=== PATIENT | female | born 1955 | race Two or more races ===

== ENCOUNTER 2022-04-03 19:20 | Observation (INO) | payer MEDICARE, OTHER ==
[2022-04-03 21:12] LABS: BASO % 0.9 % (0-2.0); HEMATOCRIT 27.2 % (32.4-45.2); HEMOGLOBIN 8.8 GM/dL (10.7-15.3); LYMPH % 30.9 % (8-40); MCH 33.2 pg (25.7-33.7); MCHC 32.4 g/dl (32.0-36.0); MEAN CELL VOLUME 102.6 fl (80-96); MEAN PLT VOLUME 9.6 fl (7.5-11.1); MONO % 8.4 % (3.8-10.2); NEUT % 51.8 % (42.8-82.8); PLATELET COUNT 132 10^3/uL (134-434); RBC 2.65 M/mm3 (3.60-5.2); RDW 15.8 % (11.6-15.6); WHITE BLOOD COUNT 3.4 K/mm3 (4.0-10.0)
[2022-04-03 21:19] LABS: INR 1.08 (0.83-1.09); PROTHROMBIN TIME (PATIENT) 12.4 SEC (9.7-13.0)
[2022-04-03 21:22] LABS: ACTIVATED PTT 33.1 SECONDS (25.2-36.5)
[2022-04-03 21:38] LABS: EPI CELLS 15 /uL (0-25.1); HYALINE CASTS 1 /uL (0-3.1); URINE APPEARANCE CLEAR; URINE BACTERIA 47 /uL (0-1359); URINE BILIRUBIN NEGATIVE (NEGATIVE); URINE COLOR YELLOW; URINE GLUCOSE (UA) NEGATIVE (NEGATIVE); URINE KETONE NEGATIVE (NEGATIVE); URINE LEUK ESTERASE 1+ (NEGATIVE); URINE NITRITE NEGATIVE (NEGATIVE); URINE PROTEIN TRACE (NEGATIVE); URINE RBC 5 /uL (0-23.9); URINE UROBILINOGEN 0.2 mg/dL (0.2-1.0); URINE WBC 63 /uL (0-25.8)
[2022-04-03 21:43] LABS: BLOOD UREA NITROGEN 25.1 mg/dL (7-18)
[2022-04-03 21:46] LABS: CREATININE 1.3 mg/dL (0.55-1.3)
[2022-04-03 21:47] LABS: BILIRUBIN,TOTAL 0.3 mg/dL (0.2-1); TOT PROT 6.8 g/dl (6.4-8.2)
[2022-04-03 21:50] LABS: N-TERMINAL BNP 1100.1 pg/ml (5-125)
[2022-04-04 11:06] VITALS: BMI 25.9
[2022-04-04] MEDS: levETIRAcetam 500 MG TABLET (FP) PO SCH (11:44)
[2022-04-04] MEDS: METOPROLOL TARTRATE 25 MG TABLET (FP) PO SCH (11:44)
[2022-04-04] MEDS: SACUBITRIL/VALSARTAN 24 MG-26 MG TABLET PO SCH ×2 (11:45→21:56)
[2022-04-04] MEDS: ESCITALOPRAM OXALATE 10 MG TABLET PO SCH (11:45)
[2022-04-04] MEDS: DIVALPROEX SODIUM 500 MG TABLET E.C. PO SCH (11:45)
[2022-04-04 13:02] LABS: BASO % 0.8 % (0-2.0); EOS % 9.1 % (0-4.5); HEMATOCRIT 30.3 % (32.4-45.2); HEMOGLOBIN 9.6 GM/dL (10.7-15.3); LYMPH % 21.8 % (8-40); MCH 32.6 pg (25.7-33.7); MCHC 31.6 g/dl (32.0-36.0); MEAN CELL VOLUME 103.1 fl (80-96); MEAN PLT VOLUME 9.3 fl (7.5-11.1); MONO % 8.6 % (3.8-10.2); NEUT % 59.7 % (42.8-82.8); PLATELET COUNT 137 10^3/uL (134-434); RBC 2.94 M/mm3 (3.60-5.2)
[2022-04-04 13:18] LABS: ALBUMIN 2.9 g/dl (3.4-5.0); BLOOD UREA NITROGEN 20.9 mg/dL (7-18); CALCIUM 8.6 mg/dL (8.5-10.1)
[2022-04-04 13:23] LABS: BILIRUBIN,TOTAL 0.6 mg/dL (0.2-1); TOT PROT 6.7 g/dl (6.4-8.2)
[2022-04-04] MEDS: QUEtiapine FUMARATE 200 MG TABLET PO SCH (21:56)
[2022-04-04] MEDS: ATORVASTATIN CA 80 MG TABLET (FP) PO SCH (21:56)
[2022-04-05] MEDS ORDERED: RIVAROXABAN 20 MG TABLET PO SCH (10:00)
[2022-04-05] MEDS: DIVALPROEX SODIUM 500 MG TABLET E.C. PO SCH (10:40)
[2022-04-05] MEDS: levETIRAcetam 500 MG TABLET (FP) PO SCH (10:40)
[2022-04-05] MEDS: ESCITALOPRAM OXALATE 10 MG TABLET PO SCH (10:40)
[2022-04-05] MEDS: METOPROLOL TARTRATE 25 MG TABLET (FP) PO SCH (10:41)
[2022-04-05] MEDS: SACUBITRIL/VALSARTAN 24 MG-26 MG TABLET PO SCH ×2 (10:43→22:15)
[2022-04-05] MEDS: POLYETHYLENE GLYCOL (HEALTHYLAX) 3350 17 GM PACKET PO SCH (10:43)
[2022-04-05 12:22] LABS: BASO % 0.8 % (0-2.0); EOS % 9.1 % (0-4.5); HEMATOCRIT 30.2 % (32.4-45.2); HEMOGLOBIN 9.8 GM/dL (10.7-15.3); LYMPH % 25.4 % (8-40); MCH 32.9 pg (25.7-33.7); MCHC 32.4 g/dl (32.0-36.0); MEAN CELL VOLUME 101.5 fl (80-96); MEAN PLT VOLUME 9.2 fl (7.5-11.1); MONO % 7.9 % (3.8-10.2); NEUT % 56.8 % (42.8-82.8); PLATELET COUNT 138 10^3/uL (134-434); RBC 2.97 M/mm3 (3.60-5.2); RDW 15.9 % (11.6-15.6); WHITE BLOOD COUNT 3.2 K/mm3 (4.0-10.0)
[2022-04-05 12:55] LABS: CALCIUM 8.5 mg/dL (8.5-10.1)
[2022-04-05 12:56] LABS: ALBUMIN 2.8 g/dl (3.4-5.0); BLOOD UREA NITROGEN 19.4 mg/dL (7-18)
[2022-04-05 12:59] LABS: CREATININE 1.1 mg/dL (0.55-1.3)
[2022-04-05 13:00] LABS: BILIRUBIN,TOTAL 0.4 mg/dL (0.2-1); TOT PROT 6.4 g/dl (6.4-8.2)
[2022-04-05 13:53] VITALS: RESP 18
[2022-04-05] MEDS: ATORVASTATIN CA 80 MG TABLET (FP) PO SCH (21:45)
[2022-04-05] MEDS: QUEtiapine FUMARATE 200 MG TABLET PO SCH (21:45)
[2022-04-06] MEDS: levETIRAcetam 500 MG TABLET (FP) PO SCH (09:06)
[2022-04-06] MEDS: METOPROLOL TARTRATE 25 MG TABLET (FP) PO SCH (09:06)
[2022-04-06] MEDS: POLYETHYLENE GLYCOL (HEALTHYLAX) 3350 17 GM PACKET PO SCH (09:07)
[2022-04-06] MEDS: DIVALPROEX SODIUM 500 MG TABLET E.C. PO SCH (09:08)
[2022-04-06] MEDS: SACUBITRIL/VALSARTAN 24 MG-26 MG TABLET PO SCH (09:08)
[2022-04-06] MEDS: ESCITALOPRAM OXALATE 10 MG TABLET PO SCH (09:09)
[2022-04-06] MEDS ORDERED: RIVAROXABAN 20 MG TABLET PO SCH (18:00)
[2022-04-06 18:52] VITALS: BP 132/80; PULSE 62; TEMP 97.8
== END 2022-04-06 18:57 ==
LOC: JER 19:20 → JERBED 22:10 → J6S 04-04 09:15
PROVIDERS: ADMIT Internal Medicine; ATTEND Family Medicine
DX: S09.90XA Unspecified injury of head, initial encounter (principal); W18.39XA Other fall on same level, initial encounter; Y93.89 Activity, other specified; Y92.89 Other specified places as the place of occurrence of the external cause; Z88.8 Allergy status to other drugs, medicaments and biological substances; I10 Essential (primary) hypertension; E78.5 Hyperlipidemia, unspecified; R29.2 Abnormal reflex; E11.9 Type 2 diabetes mellitus without complications; I25.10 Atherosclerotic heart disease of native coronary artery without angina pectoris; I11.0 Hypertensive heart disease with heart failure; I50.9 Heart failure, unspecified; Z86.73 Personal history of transient ischemic attack (TIA), and cerebral infarction without residual deficits; J45.909 Unspecified asthma, uncomplicated; Z99.89 Dependence on other enabling machines and devices; I42.8 Other cardiomyopathies; R00.1 Bradycardia, unspecified; I48.91 Unspecified atrial fibrillation; D64.9 Anemia, unspecified; R82.71 Bacteriuria; R56.9 Unspecified convulsions
CPT/HCPCS: 0241U-QW; 36415; 70450-TC; 71045-TC-FY; 72125-TC; 72170-TC-FY; 76705-TC; 80053; 80177; 81003; 82607; 82728; 82746; 83540; 83550; 83615; 83735; 83880; 84443; 84484; 85025; 85610; 85730; 86704; 86803; 86850; 86900; 86901; 87086; 87186; 87340; 87517; 93005; 93010; 97116-GP; 97161-GP; 99285-25; G0378

== ENCOUNTER 2022-04-25 19:07 | Observation (INO) | payer OTHER ==
[2022-04-25 21:54] LABS: BASO % 1.5 % (0-2.0); EOS % 3.5 % (0-4.5); HEMATOCRIT 31.5 % (32.4-45.2); HEMOGLOBIN 10.4 GM/dL (10.7-15.3); LYMPH % 25.5 % (8-40); MCHC 32.9 g/dl (32.0-36.0); MEAN CELL VOLUME 100.2 fl (80-96); MEAN PLT VOLUME 9.1 fl (7.5-11.1); MONO % 7.7 % (3.8-10.2); NEUT % 61.8 % (42.8-82.8); PLATELET COUNT 198 10^3/uL (134-434); RBC 3.15 M/mm3 (3.60-5.2); RDW 14.4 % (11.6-15.6); WHITE BLOOD COUNT 2.8 K/mm3 (4.0-10.0)
[2022-04-25 22:01] LABS: INR 1.04 (0.83-1.09)
[2022-04-25 22:04] LABS: ACTIVATED PTT 30.6 SECONDS (25.2-36.5)
[2022-04-25 22:12] LABS: CALCIUM 8.8 mg/dL (8.5-10.1)
[2022-04-25 22:13] LABS: ALBUMIN 3.1 g/dl (3.4-5.0); BLOOD UREA NITROGEN 30.3 mg/dL (7-18); MAGNESIUM 2.2 mg/dL (1.8-2.4)
[2022-04-25 22:16] LABS: CREATININE 1.3 mg/dL (0.55-1.3)
[2022-04-25 22:17] LABS: BILIRUBIN,TOTAL 0.3 mg/dL (0.2-1); TOT PROT 7.2 g/dl (6.4-8.2)
[2022-04-25] MEDS ORDERED: ACETAMINOPHEN 325 MG TABLET (FP) PO PRN (22:47)
[2022-04-26] MEDS ORDERED: DEXTROSE 50%-WATER - 25 GM/50 ML VIAL IVPUSH ONE (02:30)
[2022-04-26] MEDS ORDERED: DEXTROSE 50%-WATER 25 GM/50 ML DISP.SYRIN ONE (02:31)
[2022-04-26] MEDS ORDERED: guaiFENesin/D-M SUGAR-FREE/ACLHOL-FREE 118 ML BOTTLE PO PRN (06:33)
[2022-04-26 08:51] LABS: BASO % 0.4 % (0-2.0); EOS % 4.7 % (0-4.5); HEMATOCRIT 30.2 % (32.4-45.2); HEMOGLOBIN 10.2 GM/dL (10.7-15.3); LYMPH % 37.9 % (8-40); MCH 33.2 pg (25.7-33.7); MCHC 33.7 g/dl (32.0-36.0); MEAN CELL VOLUME 98.7 fl (80-96); MEAN PLT VOLUME 8.6 fl (7.5-11.1); PLATELET COUNT 177 10^3/uL (134-434); RBC 3.06 M/mm3 (3.60-5.2); RDW 14.4 % (11.6-15.6); WHITE BLOOD COUNT 2.3 K/mm3 (4.0-10.0)
[2022-04-26 09:13] LABS: CALCIUM 8.7 mg/dL (8.5-10.1)
[2022-04-26 09:14] LABS: BLOOD UREA NITROGEN 24.8 mg/dL (7-18); MAGNESIUM 2.1 mg/dL (1.8-2.4)
[2022-04-26 09:17] LABS: CREATININE 1.1 mg/dL (0.55-1.3); PHOSPHOROUS 2.9 mg/dL (2.5-4.9)
[2022-04-26] MEDS: INSULIN SLIDING SCALE (NOVOLOG) 1 VIAL SQ SCH ×4 (09:18→23:05)
[2022-04-26] MEDS ORDERED: ALBUTEROL SO4 HFA INHALER IH PRN (11:07)
[2022-04-26] MEDS ORDERED: POLYETHYLENE GLYCOL (HEALTHYLAX) 3350 17 GM PACKET ONE (11:13)
[2022-04-26] MEDS ORDERED: DIVALPROEX SODIUM 500 MG TABLET E.C. ONE (11:14)
[2022-04-26] MEDS ORDERED: levETIRAcetam 500 MG TABLET (FP) PO ONE (11:14)
[2022-04-26] MEDS ORDERED: ESCITALOPRAM OXALATE 10 MG TABLET ONE (11:14)
[2022-04-26] MEDS: POLYETHYLENE GLYCOL (HEALTHYLAX) 3350 17 GM PACKET PO SCH (11:17)
[2022-04-26] MEDS: DIVALPROEX SODIUM 500 MG TABLET E.C. PO SCH (11:17)
[2022-04-26] MEDS: ESCITALOPRAM OXALATE 20 MG TABLET PO SCH (11:17)
[2022-04-26] MEDS: levETIRAcetam 500 MG TABLET (FP) PO SCH ×2 (11:17→23:22)
[2022-04-26] MEDS ORDERED: FUROSEMIDE 40 MG TABLET (FP) PO ONE (18:39)
[2022-04-26] MEDS ORDERED: FUROSEMIDE 40 MG TABLET (FP) ONE (19:18)
[2022-04-26] MEDS: SACUBITRIL/VALSARTAN 24 MG-26 MG TABLET PO SCH ×2 (23:21→23:22)
[2022-04-26] MEDS: ATORVASTATIN CA 80 MG TABLET (FP) PO SCH (23:23)
[2022-04-27] MEDS: QUEtiapine FUMARATE 200 MG TABLET PO SCH ×2 (00:08→21:38)
[2022-04-27 00:51] VITALS: BMI 27.3
[2022-04-27] MEDS: INSULIN SLIDING SCALE (NOVOLOG) 1 VIAL SQ SCH ×4 (07:01→21:49)
[2022-04-27 09:13] LABS: BASO % 0.6 % (0-2.0); HEMATOCRIT 31.7 % (32.4-45.2); HEMOGLOBIN 10.6 GM/dL (10.7-15.3); LYMPH % 38.5 % (8-40); MCHC 33.5 g/dl (32.0-36.0); MEAN CELL VOLUME 98.4 fl (80-96); MONO % 8.2 % (3.8-10.2); NEUT % 46.7 % (42.8-82.8); PLATELET COUNT 169 10^3/uL (134-434); RBC 3.22 M/mm3 (3.60-5.2); RDW 14.3 % (11.6-15.6); WHITE BLOOD COUNT 2.4 K/mm3 (4.0-10.0)
[2022-04-27 09:23] LABS: ALBUMIN 2.8 g/dl (3.4-5.0); CALCIUM 8.9 mg/dL (8.5-10.1)
[2022-04-27 09:24] LABS: BLOOD UREA NITROGEN 21.5 mg/dL (7-18)
[2022-04-27 09:27] LABS: CREATININE 1.1 mg/dL (0.55-1.3)
[2022-04-27 09:28] LABS: BILIRUBIN,TOTAL 0.2 mg/dL (0.2-1); TOT PROT 6.4 g/dl (6.4-8.2)
[2022-04-27] MEDS ORDERED: ESCITALOPRAM OXALATE 10 MG TABLET ONE ×2 (09:57→09:58)
[2022-04-27] MEDS: DIVALPROEX SODIUM 500 MG TABLET E.C. PO SCH (10:01)
[2022-04-27] MEDS: POLYETHYLENE GLYCOL (HEALTHYLAX) 3350 17 GM PACKET PO SCH (10:01)
[2022-04-27] MEDS: levETIRAcetam 500 MG TABLET (FP) PO SCH ×2 (10:02→21:37)
[2022-04-27] MEDS: ESCITALOPRAM OXALATE 20 MG TABLET PO SCH (10:02)
[2022-04-27] MEDS: SACUBITRIL/VALSARTAN 24 MG-26 MG TABLET PO SCH ×2 (10:02→21:37)
[2022-04-27] MEDS: ATORVASTATIN CA 80 MG TABLET (FP) PO SCH (21:38)
[2022-04-28] MEDS: INSULIN SLIDING SCALE (NOVOLOG) 1 VIAL SQ SCH ×4 (06:03→21:49)
[2022-04-28] MEDS ORDERED: ESCITALOPRAM OXALATE 10 MG TABLET ONE (09:46)
[2022-04-28] MEDS: levETIRAcetam 500 MG TABLET (FP) PO SCH ×2 (10:29→21:41)
[2022-04-28] MEDS: ESCITALOPRAM OXALATE 20 MG TABLET PO SCH (10:29)
[2022-04-28] MEDS: POLYETHYLENE GLYCOL (HEALTHYLAX) 3350 17 GM PACKET PO SCH (10:29)
[2022-04-28] MEDS: SACUBITRIL/VALSARTAN 24 MG-26 MG TABLET PO SCH ×2 (10:30→21:41)
[2022-04-28] MEDS: DIVALPROEX SODIUM 500 MG TABLET E.C. PO SCH (10:30)
[2022-04-28] MEDS: ATORVASTATIN CA 80 MG TABLET (FP) PO SCH (21:41)
[2022-04-28] MEDS: QUEtiapine FUMARATE 200 MG TABLET PO SCH (21:41)
[2022-04-29] MEDS: INSULIN SLIDING SCALE (NOVOLOG) 1 VIAL SQ SCH ×4 (06:29→21:45)
[2022-04-29] MEDS ORDERED: ESCITALOPRAM OXALATE 10 MG TABLET ONE (07:59)
[2022-04-29 08:15] LABS: BASO % 0.6 % (0-2.0); EOS % 4.8 % (0-4.5); HEMATOCRIT 32.8 % (32.4-45.2); LYMPH % 27.3 % (8-40); MCH 33.1 pg (25.7-33.7); MCHC 33.6 g/dl (32.0-36.0); MEAN CELL VOLUME 98.5 fl (80-96); MEAN PLT VOLUME 8.3 fl (7.5-11.1); MONO % 7.4 % (3.8-10.2); NEUT % 59.9 % (42.8-82.8); PLATELET COUNT 152 10^3/uL (134-434); RBC 3.33 M/mm3 (3.60-5.2); WHITE BLOOD COUNT 3.4 K/mm3 (4.0-10.0)
[2022-04-29 08:31] LABS: CALCIUM 8.6 mg/dL (8.5-10.1)
[2022-04-29 08:32] LABS: ALBUMIN 2.6 g/dl (3.4-5.0)
[2022-04-29 08:34] LABS: CREATININE 1.1 mg/dL (0.55-1.3)
[2022-04-29 08:36] LABS: BILIRUBIN,TOTAL 0.5 mg/dL (0.2-1); TOT PROT 6.2 g/dl (6.4-8.2)
[2022-04-29 08:39] LABS: BLOOD UREA NITROGEN 20.9 mg/dL (7-18)
[2022-04-29] MEDS: SACUBITRIL/VALSARTAN 24 MG-26 MG TABLET PO SCH ×2 (09:12→21:44)
[2022-04-29] MEDS: DIVALPROEX SODIUM 500 MG TABLET E.C. PO SCH (09:12)
[2022-04-29] MEDS: ESCITALOPRAM OXALATE 20 MG TABLET PO SCH (09:12)
[2022-04-29] MEDS: POLYETHYLENE GLYCOL (HEALTHYLAX) 3350 17 GM PACKET PO SCH (09:13)
[2022-04-29] MEDS: levETIRAcetam 500 MG TABLET (FP) PO SCH ×2 (09:13→21:44)
[2022-04-29] MEDS ORDERED: RIVAROXABAN 20 MG TABLET PO SCH (18:00)
[2022-04-29] MEDS: ATORVASTATIN CA 80 MG TABLET (FP) PO SCH (21:45)
[2022-04-29] MEDS: QUEtiapine FUMARATE 200 MG TABLET PO SCH (22:48)
[2022-04-30] MEDS ORDERED: DEXTROSE 50%-WATER - 25 GM/50 ML VIAL IVPUSH ONE (06:00)
[2022-04-30] MEDS: INSULIN SLIDING SCALE (NOVOLOG) 1 VIAL SQ SCH ×2 (06:00→12:05)
[2022-04-30] MEDS ORDERED: DEXTROSE 50%-WATER 25 GM/50 ML DISP.SYRIN ONE (06:02)
[2022-04-30] MEDS ORDERED: ESCITALOPRAM OXALATE 10 MG TABLET ONE (08:09)
[2022-04-30 08:10] LABS: BASO % 0.6 % (0-2.0); EOS % 5.9 % (0-4.5); HEMATOCRIT 32.4 % (32.4-45.2); HEMOGLOBIN 10.8 GM/dL (10.7-15.3); LYMPH % 32.6 % (8-40); MCH 32.9 pg (25.7-33.7); MCHC 33.4 g/dl (32.0-36.0); MEAN CELL VOLUME 98.3 fl (80-96); MEAN PLT VOLUME 9.4 fl (7.5-11.1); MONO % 7.5 % (3.8-10.2); NEUT % 53.4 % (42.8-82.8); PLATELET COUNT 148 10^3/uL (134-434); RBC 3.29 M/mm3 (3.60-5.2); WHITE BLOOD COUNT 2.7 K/mm3 (4.0-10.0)
[2022-04-30 08:42] LABS: ALBUMIN 2.6 g/dl (3.4-5.0); BILIRUBIN,TOTAL 0.2 mg/dL (0.2-1); BLOOD UREA NITROGEN 20.1 mg/dL (7-18); CALCIUM 8.8 mg/dL (8.5-10.1); CREATININE 1.1 mg/dL (0.55-1.3); TOT PROT 6.3 g/dl (6.4-8.2)
[2022-04-30] MEDS: DIVALPROEX SODIUM 500 MG TABLET E.C. PO SCH (09:40)
[2022-04-30] MEDS: SACUBITRIL/VALSARTAN 24 MG-26 MG TABLET PO SCH (09:40)
[2022-04-30] MEDS: POLYETHYLENE GLYCOL (HEALTHYLAX) 3350 17 GM PACKET PO SCH (09:40)
[2022-04-30] MEDS: ESCITALOPRAM OXALATE 20 MG TABLET PO SCH (09:40)
[2022-04-30] MEDS: levETIRAcetam 500 MG TABLET (FP) PO SCH (09:40)
[2022-04-30 14:14] VITALS: BP 118/84; PULSE 73; RESP 18; TEMP 98.5
== END 2022-04-30 16:24 ==
LOC: JER 19:07 → JERBED 20:00 → J4S 04-26 22:58
PROVIDERS: ADMIT Internal Medicine; ATTEND Internal Medicine
PROC: 3E033GC Introduction of Other Therapeutic Substance into Peripheral Vein, Percutaneous Approach (ICD-10-PCS; principal; 2022-04-25)
DX: I11.0 Hypertensive heart disease with heart failure (principal); U07.1 COVID-19; I25.10 Atherosclerotic heart disease of native coronary artery without angina pectoris; E78.5 Hyperlipidemia, unspecified; E11.9 Type 2 diabetes mellitus without complications; I50.20 Unspecified systolic (congestive) heart failure; Z86.718 Personal history of other venous thrombosis and embolism; Z79.01 Long term (current) use of anticoagulants; I42.8 Other cardiomyopathies; R01.1 Cardiac murmur, unspecified; M54.9 Dorsalgia, unspecified; W18.39XA Other fall on same level, initial encounter; S09.90XA Unspecified injury of head, initial encounter; Y93.89 Activity, other specified; Y92.89 Other specified places as the place of occurrence of the external cause; Z88.8 Allergy status to other drugs, medicaments and biological substances
CPT/HCPCS: 0241U-QW; 36415; 70450-TC; 71045-TC-FY; 72125-TC; 72170-TC-FY; 80048; 80053; 82728; 82962; 83605; 83615; 83735; 84100; 85025; 85610; 85730; 86140; 86850; 86900; 86901; 93005; 93010; 94761; 96374; 96376; 97116-GP; 97161-GP; 99285-25; G0378

== ENCOUNTER 2022-05-05 22:22 | Observation (INO) | payer OTHER ==
[2022-05-05] MEDS ORDERED: SODIUM CHLORIDE 0.9% 500 ML INFUS.BAG IV ONE ×2 (23:18→23:28)
[2022-05-06 01:26] LABS: CHLORIDE 104 mmol/L (98-107); SODIUM 140 mmol/L (136-145)
[2022-05-06 01:28] LABS: ALBUMIN 2.9 g/dl (3.4-5.0); CALCIUM 8.7 mg/dL (8.5-10.1); CO2 30 mmol/L (21-32)
[2022-05-06 01:29] LABS: GLUCOSE,RANDOM 83 mg/dL (74-106); MAGNESIUM 2.4 mg/dL (1.8-2.4)
[2022-05-06 01:30] LABS: INR 1.29 (0.83-1.09); PROTHROMBIN TIME (PATIENT) 14.9 SEC (9.7-13.0)
[2022-05-06 01:31] LABS: CREATININE 1.6 mg/dL (0.55-1.3)
[2022-05-06 01:32] LABS: PHOSPHOROUS 3.6 mg/dL (2.5-4.9); SGOT/AST 23 U/L (15-37); SGPT/ALT 13 U/L (13-61)
[2022-05-06 01:33] LABS: ACTIVATED PTT 39.6 SECONDS (25.2-36.5); BILIRUBIN,TOTAL 0.2 mg/dL (0.2-1); TOT PROT 6.8 g/dl (6.4-8.2)
[2022-05-06 01:34] LABS: ALK PHOS 78 U/L (45-117)
[2022-05-06 01:36] LABS: BASO % 0.6 % (0-2.0); EOS % 3.1 % (0-4.5); HEMOGLOBIN 10.1 GM/dL (10.7-15.3); LYMPH % 22.2 % (8-40); MCH 32.1 pg (25.7-33.7); MCHC 32.5 g/dl (32.0-36.0); MEAN CELL VOLUME 98.8 fl (80-96); MEAN PLT VOLUME 9.2 fl (7.5-11.1); MONO % 11.6 % (3.8-10.2); NEUT % 62.5 % (42.8-82.8); PLATELET COUNT 133 10^3/uL (134-434); RBC 3.13 M/mm3 (3.60-5.2); RDW 14.3 % (11.6-15.6); WHITE BLOOD COUNT 4.5 K/mm3 (4.0-10.0)
[2022-05-06 01:39] LABS: ANION GAP 6 MMOL/L (8-16)
[2022-05-06 02:47] LABS: CALCIUM 8.6 mg/dL (8.5-10.1)
[2022-05-06 02:48] LABS: BLOOD UREA NITROGEN 43.9 mg/dL (7-18)
[2022-05-06 02:51] LABS: CREATININE 1.4 mg/dL (0.55-1.3)
[2022-05-06] MEDS ORDERED: SODIUM CHLORIDE 1,000 ML IV SCH (04:00)
[2022-05-06] MEDS ORDERED: guaiFENesin/D-M SUGAR-FREE/ACLHOL-FREE 118 ML BOTTLE PO PRN (05:14)
[2022-05-06] MEDS ORDERED: ACETAMINOPHEN 1000 MG/100 ML BAG IVPB PRN (05:16)
[2022-05-06] MEDS ORDERED: DIVALPROEX SODIUM 500 MG TABLET E.C. PO SCH (10:00)
[2022-05-06] MEDS ORDERED: POLYETHYLENE GLYCOL (HEALTHYLAX) 3350 17 GM PACKET ONE (10:31)
[2022-05-06] MEDS ORDERED: ESCITALOPRAM OXALATE 10 MG TABLET ONE (10:31)
[2022-05-06] MEDS ORDERED: METOPROLOL TARTRATE 25 MG TABLET (FP) ONE (10:31)
[2022-05-06] MEDS: INSULIN SLIDING SCALE (NOVOLOG) 1 VIAL SQ SCH ×4 (10:34→23:30)
[2022-05-06] MEDS: ESCITALOPRAM OXALATE 20 MG TABLET PO SCH (10:35)
[2022-05-06] MEDS: POLYETHYLENE GLYCOL (HEALTHYLAX) 3350 17 GM PACKET PO SCH (10:35)
[2022-05-06] MEDS: METOPROLOL TARTRATE 25 MG TABLET (FP) PO SCH (10:35)
[2022-05-06] MEDS ORDERED: DIVALPROEX SODIUM 500 MG TABLET E.C. ONE (10:40)
[2022-05-06] MEDS ORDERED: INSULIN (NOVOLOG) ASPART 100 UNITS/ML 10ML VIAL ONE (11:07)
[2022-05-06] MEDS ORDERED: QUEtiapine FUMARATE 200 MG TABLET PO SCH (22:00)
[2022-05-06] MEDS: ATORVASTATIN CA 80 MG TABLET (FP) PO SCH (23:13)
[2022-05-06] MEDS: levETIRAcetam 500 MG TABLET (FP) PO SCH (23:13)
[2022-05-06] MEDS ORDERED: QUEtiapine FUMARATE 100 MG TABLET (FP) PO SCH (23:45)
[2022-05-07] MEDS ORDERED: ACETAMINOPHEN 325 MG TABLET (FP) PO PRN (05:07)
[2022-05-07] MEDS: INSULIN SLIDING SCALE (NOVOLOG) 1 VIAL SQ SCH ×4 (07:53→22:00)
[2022-05-07 08:01] LABS: BASO % 0.4 % (0-2.0); EOS % 3.4 % (0-4.5); HEMATOCRIT 34.9 % (32.4-45.2); HEMOGLOBIN 11.3 GM/dL (10.7-15.3); LYMPH % 33.5 % (8-40); MCH 32.4 pg (25.7-33.7); MCHC 32.5 g/dl (32.0-36.0); MEAN CELL VOLUME 99.8 fl (80-96); MEAN PLT VOLUME 9.8 fl (7.5-11.1); MONO % 11.1 % (3.8-10.2); NEUT % 51.6 % (42.8-82.8); PLATELET COUNT 148 10^3/uL (134-434); RBC 3.49 M/mm3 (3.60-5.2); RDW 14.6 % (11.6-15.6); WHITE BLOOD COUNT 3.6 K/mm3 (4.0-10.0)
[2022-05-07] MEDS: levETIRAcetam 500 MG TABLET (FP) PO SCH ×2 (09:30→23:07)
[2022-05-07] MEDS: ESCITALOPRAM OXALATE 20 MG TABLET PO SCH (09:30)
[2022-05-07] MEDS: METOPROLOL TARTRATE 25 MG TABLET (FP) PO SCH (09:30)
[2022-05-07] MEDS: POLYETHYLENE GLYCOL (HEALTHYLAX) 3350 17 GM PACKET PO SCH (09:31)
[2022-05-07 09:40] LABS: BLOOD UREA NITROGEN 32.4 mg/dL (7-18); CALCIUM 8.9 mg/dL (8.5-10.1)
[2022-05-07 09:44] LABS: CREATININE 1.2 mg/dL (0.55-1.3)
[2022-05-07] MEDS ORDERED: DIVALPROEX SODIUM 500 MG TABLET E.C. PO SCH (10:00)
[2022-05-07 12:52] VITALS: BMI 28.8
[2022-05-07] MEDS: SODIUM ZIRCONIUM CYCLOSILICATE (LOKELMA) 5 GM PACKET PO SCH (13:08)
[2022-05-07] MEDS ORDERED: RIVAROXABAN 20 MG TABLET PO SCH (18:00)
[2022-05-07] MEDS ORDERED: QUEtiapine FUMARATE 100 MG TABLET (FP) PO SCH ×2 (22:00)
[2022-05-07] MEDS: ATORVASTATIN CA 80 MG TABLET (FP) PO SCH (23:08)
[2022-05-08 04:10] VITALS: RESP 18
[2022-05-08] MEDS: INSULIN SLIDING SCALE (NOVOLOG) 1 VIAL SQ SCH ×2 (06:10→11:40)
[2022-05-08 07:40] LABS: CALCIUM 8.7 mg/dL (8.5-10.1)
[2022-05-08 07:41] LABS: BLOOD UREA NITROGEN 25.1 mg/dL (7-18)
[2022-05-08] MEDS: POLYETHYLENE GLYCOL (HEALTHYLAX) 3350 17 GM PACKET PO SCH (09:35)
[2022-05-08] MEDS: levETIRAcetam 500 MG TABLET (FP) PO SCH (09:35)
[2022-05-08] MEDS: ESCITALOPRAM OXALATE 20 MG TABLET PO SCH (09:35)
[2022-05-08] MEDS ORDERED: metoPROLOL SUCCINATE 25 MG TAB.SR.24H (FP) PO SCH (10:00)
[2022-05-08 10:08] VITALS: BP 103/71; PULSE 59; TEMP 97.8
[2022-05-08] MEDS: SODIUM ZIRCONIUM CYCLOSILICATE (LOKELMA) 5 GM PACKET PO SCH (11:50)
== END 2022-05-08 12:20 ==
LOC: JER 22:22 → UNDOADMOB 05-06 01:42 → JERBED 05-06 01:42 → J4W 05-06 21:26
PROVIDERS: ADMIT Internal Medicine; ATTEND Family Medicine
PROC: 3E0337Z Introduction of Electrolytic and Water Balance Substance into Peripheral Vein, Percutaneous Approach (ICD-10-PCS; principal; 2022-05-06)
DX: E11.9 Type 2 diabetes mellitus without complications (principal); J45.909 Unspecified asthma, uncomplicated; R56.9 Unspecified convulsions; F25.9 Schizoaffective disorder, unspecified; F31.9 Bipolar disorder, unspecified; E46 Unspecified protein-calorie malnutrition; Z68.20 Body mass index [BMI] 20.0-20.9, adult; I25.10 Atherosclerotic heart disease of native coronary artery without angina pectoris; I11.0 Hypertensive heart disease with heart failure; Z95.810 Presence of automatic (implantable) cardiac defibrillator; I42.2 Other hypertrophic cardiomyopathy; Z88.8 Allergy status to other drugs, medicaments and biological substances; W18.39XA Other fall on same level, initial encounter; Y93.89 Activity, other specified; Y92.091 Bathroom in other non-institutional residence as the place of occurrence of the external cause
CPT/HCPCS: 36415; 70450-TC; 71045-TC-FY; 72125-TC; 72170-TC-FY; 73521-TC-FY; 80048; 80053; 80164; 82962; 83605; 83735; 84100; 84484; 85025; 85610; 85730; 93005; 93010; 93306-TC; 97116-GP; 97162-GP; 99285-25; C9803-CS; G0378; U0003; U0005

== ENCOUNTER 2022-05-14 14:52 | Emergency (ER) | payer OTHER ==
[2022-05-14] MEDS ORDERED: ACETAMINOPHEN 500 MG TABLET (FP) PO ONE (15:36)
[2022-05-14] MEDS ORDERED: ACETAMINOPHEN 325 MG TABLET (FP) ONE (15:48)
[2022-05-14 16:02] VITALS: RESP 20; TEMP 97.9; BMI 29.9
[2022-05-14 16:47] LABS: BASO % 0.7 % (0-2.0); EOS % 6.5 % (0-4.5); HEMATOCRIT 31.1 % (32.4-45.2); HEMOGLOBIN 10.1 GM/dL (10.7-15.3); LYMPH % 28.6 % (8-40); MCH 32.2 pg (25.7-33.7); MCHC 32.5 g/dl (32.0-36.0); MEAN CELL VOLUME 98.9 fl (80-96); MEAN PLT VOLUME 9.2 fl (7.5-11.1); MONO % 9.4 % (3.8-10.2); NEUT % 54.8 % (42.8-82.8); PLATELET COUNT 165 10^3/uL (134-434); RBC 3.14 M/mm3 (3.60-5.2); RDW 14.8 % (11.6-15.6); WHITE BLOOD COUNT 4.5 K/mm3 (4.0-10.0)
[2022-05-14 16:54] LABS: INR 1.05 (0.83-1.09); PROTHROMBIN TIME (PATIENT) 12.1 SEC (9.7-13.0)
[2022-05-14 16:57] LABS: ACTIVATED PTT 32.1 SECONDS (25.2-36.5)
[2022-05-14 17:15] LABS: CALCIUM 8.4 mg/dL (8.5-10.1)
[2022-05-14 17:16] LABS: ALBUMIN 3.1 g/dl (3.4-5.0); BLOOD UREA NITROGEN 34.2 mg/dL (7-18); MAGNESIUM 2.1 mg/dL (1.8-2.4)
[2022-05-14 17:19] LABS: CREATININE 1.3 mg/dL (0.55-1.3)
[2022-05-14 17:21] LABS: BILIRUBIN,TOTAL 0.3 mg/dL (0.2-1)
[2022-05-14 23:37] VITALS: BP 128/76; PULSE 58
== END 2022-05-14 23:37 ==
LOC: JER 14:52
DX: S09.90XA Unspecified injury of head, initial encounter (principal); W01.0XXA Fall on same level from slipping, tripping and stumbling without subsequent striking against object, initial encounter
CPT/HCPCS: 0241U-QW; 36415; 70450-TC; 71045-TC-FY; 72125-TC; 80053; 83735; 84484; 85025; 85610; 85730; 86850; 86900; 86901; 93005; 93010; 99285-25